=== PATIENT | female | born 1940 | race Caucasian/White ===

== ENCOUNTER 2021-07-26 11:23 | Outpatient (CLI) | payer MEDICARE | END 2021-07-26 11:24 | disposition home or self-care (01) | LOC: BURRAD 11:23 | PROVIDERS: ATTEND Family Medicine | DX: S52.612K Displaced fracture of left ulna styloid process, subsequent encounter for closed fracture with nonunion (principal); M18.12 Unilateral primary osteoarthritis of first carpometacarpal joint, left hand; Z87.81 Personal history of (healed) traumatic fracture ==